=== PATIENT | female | born 1935 | race Caucasian/White ===

== ENCOUNTER 2022-02-12 15:48 | Emergency (ER) | payer OTHER ==
[~2022-02-12] VITALS: Ht 157.5 cm; Wt 68.0 kg
[2022-02-12 16:09] VITALS: BP_SYST 159
[2022-02-12] MEDS ORDERED: HYDR-3917 PO (17:58)
[2022-02-12] MEDS ORDERED: ACET-2634 PO (17:58)
[2022-02-12] MEDS ORDERED: LEVO250T73 PO (17:58)
[2022-02-12 18:15] VITALS: BP_SYST 141
[2022-02-13] MEDS ORDERED: ALEN70TA27 PO (15:15)
[2022-02-13] MEDS ORDERED: LOSA50TA28 PO (15:15)
[2022-02-13] MEDS ORDERED: VENL150C53 PO (15:15)
[2022-02-13] MEDS ORDERED: ROSU20TA32 PO (15:15)
[2022-02-13] MEDS ORDERED: METO-540 PO (15:15)
[2022-02-13] MEDS ORDERED: CLOP75TA32 PO (15:15)
== END 2022-02-12 18:15 | disposition home or self-care (01) ==
LOC: SED 15:48
DX: S42.111A Displaced fracture of body of scapula, right shoulder, initial encounter for closed fracture (principal); S20.212A Contusion of left front wall of thorax, initial encounter; S30.1XXA Contusion of abdominal wall, initial encounter; Z88.6 Allergy status to analgesic agent; Z79.899 Other long term (current) drug therapy; W01.198A Fall on same level from slipping, tripping and stumbling with subsequent striking against other object, initial encounter; Y93.89 Activity, other specified; Y92.89 Other specified places as the place of occurrence of the external cause; Y99.8 Other external cause status
CPT/HCPCS: 71250-TC; 73502; 76376; 99284

== ENCOUNTER 2022-02-13 12:48 | Inpatient (IN) | payer OTHER ==
[~2022-02-13] VITALS: Ht 157.5 cm; Wt 68.5 kg
[~2022-02-13 12:48] MED LIST: ACET-2634 PO; HYDR-3917 PO; LEVO250T73 PO
--- NOTE | 2022-02-13 12:50 | NUR ---
Patient to ER bed 06 to gown for evaluation. Side rails up.
--- NOTE | 2022-02-13 12:52 | NUR ---
Pt brought by daughter, Shyam&Ox4, pt presents to ER with SOB , O2 98%, per patient she visited ER yesterday and was told to return to ER for f/u , pt states she had a mechanical fall few days ago causing bruising on middle back, pt current O2 98%, skin pink and warm, cap refill <3, will cont to monitor.
[2022-02-13 12:55] VITALS: BP_SYST 146
--- NOTE | 2022-02-13 13:00 | NUR ---
Dr Dunaway evaluating patient at bedside
[2022-02-13 14:08] LABS: BASOPHILS % (AUTO) 0.4 % (0.0-2.0); EOSINOPHILS # (AUTO) 0.1 K/uL (0.0-0.4); EOSINOPHILS % (AUTO) 1.8 % (0.0-4.0); HEMATOCRIT 36.6 % (36-48); HEMOGLOBIN 12.2 g/dL (12.0-16.0); LYMPHOCYTES # (AUTO) 0.7 K/uL (1.0-5.5); LYMPHOCYTES % (AUTO) 8.9 % (20.5-51.5); MEAN CORPUSCULAR HEMOGLOBIN 32 pg (27-31); MEAN CORPUSCULAR HGB CONC 33 % (32-36); MEAN CORPUSCULAR VOLUME 96 fL (79.0-98.0); MONOCYTES # (AUTO) 0.9 K/uL (0.0-1.0); MONOCYTES % (AUTO) 11.2 % (1.7-9.3); NEUTROPHILS # (AUTO) 5.9 K/uL (1.8-7.7); NEUTROPHILS % (AUTO) 77.7 % (40.0-70.0); PLATELET COUNT (AUTO) 200 K/uL (130-430); RED BLOOD CELL COUNT(AUTO) 3.83 MIL/uL (4.2-6.2); RED CELL DISTRIBUTION WIDTH 13.4 % (9.0-15.0); WHITE BLOOD COUNT (AUTO) 7.6 K/uL (4.8-10.8)
[2022-02-13 14:10] LABS: ANION GAP 9 (5-15); CHLORIDE 104 mmol/L (98-107); CREATININE 1.26 mg/dL (0.55-1.30); GLUCOSE 101 mg/dL (70-99); UREA NITROGEN, BLOOD 20 mg/dL (8-21)
[2022-02-13 14:13] LABS: INR 1.1 (0.8-1.2); PROTHROMBIN TIME 11.4 SECS (9.5-12.5)
[2022-02-13 14:20] LABS: ALANINE AMINOTRANSFERASE 16 U/L (12-78); ALBUMIN 3.6 g/dL (3.4-4.8); ASPARTATE AMINOTRANSFERASE 21 U/L (10-37); TOTAL BILIRUBIN 0.4 mg/dL (0.0-1.0)
--- NOTE | 2022-02-13 14:55 | NUR ---
Covid test sent to the lab
[2022-02-13] MEDS ORDERED: VENL150C53 PO (15:15)
[2022-02-13] MEDS ORDERED: ROSU20TA32 PO (15:15)
[2022-02-13] MEDS ORDERED: ALEN70TA27 PO (15:15)
[2022-02-13] MEDS ORDERED: LOSA50TA28 PO (15:15)
[2022-02-13] MEDS ORDERED: CLOP75TA32 PO (15:15)
[2022-02-13] MEDS ORDERED: METO-540 PO (15:15)
--- NOTE | 2022-02-13 15:23 | NUR ---
Dr Dunaway explaining results to patient at bedside
--- NOTE | 2022-02-13 15:24 | NUR ---
Pt A&Ox4, VSS, respirations even and unlabored, cap refill <3, will cont to monitor
[2022-02-13] MEDS ORDERED: MORPHINE 2 MG/ML INJ. SYRINGE IVP ONE (15:45)
--- NOTE | 2022-02-13 16:16 | NUR ---
Admit bed requested Patient will be admitted to care of Dr Dangelo . Admitted to Tele unit. Diagnosis VT NSTEMI Inpatient (Yes or No) YES Observation (Yes or No) NO Orientation concerns or request close to nursing station (Yes or No) NO Covid Status NEGATIVE On vent or bipap N/A Isolation requirements N/A Needs a sitter N/A From Home (Yes or if No enter name of facility) YES Requires Dialysis (Yes or No) NO Med Rec Completed (Yes of No) YES
--- NOTE | 2022-02-13 20:15 | NUR ---
Patient will be admitted to care of DR. VASQUEZ. Admitted to TELEMETRY unit. Will go to room 101. Belongings list completed. Complete and up to date summary report printed. SBAR report given to Mary VANCE at bedside with opportunity for questions.
--- NOTE | 2022-02-13 20:20 | NUR ---
ADMISSION NOTE Received patient from ER via gurney. Patient admitted with diagnosis of MT. Patient is awake, alert, oriented X 4. Patient oriented to hospital room, call light, toileting, pain management and safety-teach back done. Patient informed that I will be her nurse and that HER room number is 101A. Personal belongings checked and Belongings List documented. Call light within reach.
[2022-02-13 20:31] VITALS: BP_SYST 133
--- NOTE | 2022-02-13 22:05 | NUR ---
NOTES PAGED DR. VASQUEZ FOR ORDERS OF HER HOME MEDS AT NIGHT TIME, LOSARTAN AND METOPROLOL. WAITING FOR RETURN CALL.
[2022-02-14 00:47] VITALS: BP_SYST 143
--- NOTE | 2022-02-14 06:50 | NUR ---
CLOSING NOTES PATIENT STABLE, NO CHEST PAIN, NO COMPLAINTS AT THIS TIME. ALL NEEDS ATTENDED TO. CALL LIGHT PLACED WITHIN REACH.
--- NOTE | 2022-02-14 07:40 | NUR ---
OPENING NOTE Received report from PINKY Simons. Upon entering room, patient was sitting up in bed, alert and oriented x4. She is eating breakfast at this time. She denies pain but reports discomfort. She was repositioned in bed. Vital signs stable. Call light within reach. All safety precautions observed. IV site, clean, dry, and intact at this time.
[2022-02-14 08:15] VITALS: BP_SYST 135
[2022-02-14] MEDS ORDERED: CARVEDILOL 3.125 MG TABLET (COREG) PO SCH (09:00)
[2022-02-14 11:24] VITALS: BP_SYST 96
--- NOTE | 2022-02-14 11:30 | NUR ---
MD ROUNDS Dr. Dangelo at bedside.
--- NOTE | 2022-02-14 13:00 | NUR ---
CARDIO ROUNDS Dr. Gomez at bedside.
[2022-02-14 15:49] VITALS: BP_SYST 138
--- NOTE | 2022-02-14 16:11 | NUR ---
TRENT CAMARILLO Spoke to Mahogany at exchange. Dr. Patricia chowdhury RE: critical value reporting. First call.
--- NOTE | 2022-02-14 16:24 | NUR ---
REPORTED TO Reported critical value to Dr. Gomez. No new orders were received.
--- NOTE | 2022-02-14 18:53 | NUR ---
CLOSING NOTE Patient is laying in bed at this time, eating dinner. She denies any pain or discomfort. IV site intact, clean, and dry. Call light within reach. All safety precautions observed. Will endorse to night custodian RN.
[2022-02-14 20:00] VITALS: BP_SYST 153
--- NOTE | 2022-02-14 20:10 | NUR ---
Patient requesting her home meds med rec not done; told patient I will come back and review home med list with her and I can page MD to continue meds
--- NOTE | 2022-02-14 21:35 | NUR ---
Dr. Dangelo Returned call and I informed him patient is requesting her medications to be continued. Dr. Dangelo said nurse in day shift asked him same question, he provided info and now I'm asking him same question. I reviewed list and received orders to continue these meds: Losartan Potassium, Rosuvastatin, Venlafaxine. He said don't continue Metoprol she is on Coreg. I informed Coreg is daily am and he provided orders for Coreg BID: TORB
[2022-02-14] MEDS: CARVEDILOL 3.125 MG TABLET (COREG) PO SCH (22:30)
[2022-02-14] MEDS: LOSARTAN POTASSIUM 50 MG TABLET (COZAAR) PO SCH (22:31)
[2022-02-15 00:10] VITALS: BP_SYST 125
--- NOTE | 2022-02-15 04:30 | NUR ---
BSC, bed bath Patient is awake out of bed for use of BSC. Voided and had very small medium dark stool. She was provided with bed bath (cleansing protectant wipes), new gown and new bed linen. She was assisted back to bed, no further needs, she wants to sleep again. Safety precautions in place and call light w/in reach.
[2022-02-15 08:00] VITALS: BP_SYST 95
[2022-02-15 08:10] LABS: BASOPHILS # (AUTO) 0.1 K/uL (0.0-0.2); BASOPHILS % (AUTO) 0.6 % (0.0-2.0); EOSINOPHILS # (AUTO) 0.2 K/uL (0.0-0.4); EOSINOPHILS % (AUTO) 2.2 % (0.0-4.0); HEMATOCRIT 37.5 % (36-48); HEMOGLOBIN 12.5 g/dL (12.0-16.0); LYMPHOCYTES % (AUTO) 12.8 % (20.5-51.5); MEAN CORPUSCULAR HEMOGLOBIN 32 pg (27-31); MEAN CORPUSCULAR HGB CONC 33 % (32-36); MEAN CORPUSCULAR VOLUME 97 fL (79.0-98.0); MONOCYTES # (AUTO) 1.1 K/uL (0.0-1.0); MONOCYTES % (AUTO) 13.1 % (1.7-9.3); NEUTROPHILS # (AUTO) 5.7 K/uL (1.8-7.7); NEUTROPHILS % (AUTO) 71.3 % (40.0-70.0); PLATELET COUNT (AUTO) 193 K/uL (130-430); RED BLOOD CELL COUNT(AUTO) 3.88 MIL/uL (4.2-6.2); RED CELL DISTRIBUTION WIDTH 13.4 % (9.0-15.0); WHITE BLOOD COUNT (AUTO) 8.1 K/uL (4.8-10.8)
[2022-02-15 08:13] LABS: ANION GAP 6 (5-15); CHLORIDE 105 mmol/L (98-107); CREATININE 1.06 mg/dL (0.55-1.30); GLUCOSE 110 mg/dL (70-99); UREA NITROGEN, BLOOD 28 mg/dL (8-21)
[2022-02-15] MEDS: CARVEDILOL 3.125 MG TABLET (COREG) PO SCH ×2 (09:00→21:31)
[2022-02-15] MEDS: LOSARTAN POTASSIUM 50 MG TABLET (COZAAR) PO SCH ×2 (09:00→21:31)
[2022-02-15] MEDS: Effexor XR 37.5 MG PO SCH (10:24)
[2022-02-15 11:29] VITALS: BP_SYST 108
[2022-02-15 15:19] VITALS: BP_SYST 121
--- NOTE | 2022-02-15 15:50 | NUR ---
NOTES: pt. called and asking what time she is being discharge, informed RN Juliana but there is no order. informed pt. and family asked to call MD, called souleymane of Dr. Dangelo, waiting to call back.
--- NOTE | 2022-02-15 19:25 | NUR ---
OPENING NOTE PT UPSET DUE TO NOT BEING DISCHARGED EARLIER TODAY. PT STATED THE DR SAID SHE COULD GO HOME TODAY AROUND 1430. DAY SHIFT TRIED TO CONTACT DR VASQUEZ 4X WITH NO CALL BACK. NO APPARENT DISTRESS NOTED AT THIS TIME. BED IN LOWEST POSITION WITH FALL AND SAFETY PRECAUTIONS IN PLACE. CALL LIGHT WITH REACH, PT EDUCATED ON HOW TO USE IT. ALL NEEDS MET T THIS TIME.
[2022-02-15 20:00] VITALS: BP_SYST 143
--- NOTE | 2022-02-15 20:27 | NUR ---
PAGED PAGED HCP WHO DOCTOR A MARYAL IS COVERING FOR DR VASQUEZ
[2022-02-15] MEDS: ATORVASTATIN 20 MG TABLET PO SCH ×2 (21:00→21:30)
[2022-02-16] VITALS: BP_SYST 157
--- NOTE | 2022-02-16 | NUR ---
ROUNDS PT IS LYING IN BED WITH EYES SLEEPING. BED IN LOWEST POSITION WITH SAFETY PRECAUTIONS IN PLACE. CALL LIGHT WITHIN REACH
--- NOTE | 2022-02-16 02:30 | NUR ---
ROUNDS PT IS LYING IN BED WITH EYES SLEEPING. BED IN LOWEST POSITION WITH SAFETY PRECAUTIONS IN PLACE. CALL LIGHT WITHIN REACH.
--- NOTE | 2022-02-16 06:27 | NUR ---
ROUNDS PT IS LYING IN BED WITH EYES SLEEPING. BED IN LOWEST POSITION WITH SAFETY PRECAUTIONS IN PLACE. CALL LIGHT WITHIN REACH
--- NOTE | 2022-02-16 07:03 | NUR ---
CLOSING NOTE PT IS LYING IN BED SLEEPING. NO APPARENT SIGNS OF DISTRESS NOTED AT THIS TIME. BED IN LOWEST POSITION WITH SAFETY PRECAUTIONS IN PLACE. CALL LIGHT WITHIN REACH.
[2022-02-16 08:00] VITALS: BP_SYST 148
[2022-02-16 09:53] VITALS: BP_SYST 136
[2022-02-16] MEDS: CARVEDILOL 3.125 MG TABLET (COREG) PO SCH (10:04)
[2022-02-16] MEDS: LOSARTAN POTASSIUM 50 MG TABLET (COZAAR) PO SCH (10:05)
[2022-02-16] MEDS: Effexor XR 37.5 MG PO SCH (10:05)
--- NOTE | 2022-02-16 10:34 | NUR ---
Patient ready for discharge. All paperwork given. IV removed. Patient changed into regular clothes. All belongings with patient. Patient ambulatory with assistance from bed to wheelchair. No distress noted. Patient transported to personal vehicle.
== END 2022-02-16 10:00 | disposition home health service (06) | DRG 282 ==
LOC: SED 12:48 → STU 15:37 → SMU 02-16 05:44
PROVIDERS: ADMIT Specialist; ATTEND Specialist
DX: R07.89 Other chest pain (principal); I21.A1 Myocardial infarction type 2; I11.0 Hypertensive heart disease with heart failure; I25.10 Atherosclerotic heart disease of native coronary artery without angina pectoris; E78.5 Hyperlipidemia, unspecified; F03.90 Unspecified dementia, unspecified severity, without behavioral disturbance, psychotic disturbance, mood disturbance, and anxiety; F17.210 Nicotine dependence, cigarettes, uncomplicated; I73.9 Peripheral vascular disease, unspecified; I25.5 Ischemic cardiomyopathy; R29.6 Repeated falls; R53.81 Other malaise; Z20.822 Contact with and (suspected) exposure to COVID-19; J44.9 Chronic obstructive pulmonary disease, unspecified; I50.9 Heart failure, unspecified; Z88.0 Allergy status to penicillin; Z88.8 Allergy status to other drugs, medicaments and biological substances; Z79.899 Other long term (current) drug therapy; Z91.81 History of falling; I25.2 Old myocardial infarction; Z90.710 Acquired absence of both cervix and uterus
CPT/HCPCS: 36415; 71045; 80048; 80053; 83605; 83880; 84484; 85025; 85610-TC; 85730-TC; 93005; 93306; 99285; G0378; J2270